=== PATIENT | male | born 1995 | race Caucasian/White ===

== ENCOUNTER 2018-03-21 18:52 | Emergency (ER) | payer OTHER ==
[2018-03-21] MEDS: ONDANSETRON 4 MG TAB (S0181) PO (21:24)
[2018-03-21] MEDS: KETOROLAC 60 MG/2 ML VIAL (J1885) IM (21:26)
[2018-03-21] MEDS ORDERED: NORCO 5/325MG TABLET (BULK FOR ED) PO (21:45)
== END 2018-03-21 22:07 | disposition home or self-care (01) ==
LOC: M ED 18:52
DX: Z04.1 Encounter for examination and observation following transport accident (principal); V86.04XA Driver of military vehicle injured in traffic accident, initial encounter; Y92.410 Unspecified street and highway as the place of occurrence of the external cause; Y99.1 Military activity
CPT/HCPCS: J1885